=== PATIENT | female | born 1985 | race Caucasian/White ===

== ENCOUNTER 2016-12-12 22:09 | Observation (INO) | payer OTHER ==
[~2016-12-12] VITALS: Ht 167.6 cm; Wt 102.1 kg
[2016-12-12 22:13] VITALS: BP 138/97; PULSE 98; RESP 16; O2SAT 99
--- NOTE | 2016-12-12 22:50 | ED.REPORT ---
HPI-Chest Pain Under 40 Date of Service Dec 12, 2016 ED Provider: Adolph Griffith MD 31 year old female with a history of childhood seizures but no history of chest pain presents to ED complaining of chest pain that radiates to left shoulder, onset 1000 this morning. The pain feels more sharp during inspiration and has been worsening since this morning. She denies any nausea, vomiting, diarrhea, diaphoresis, SOB, productive cough, or abdominal pain. She does have a Mirena control device in place. The patient reports allergies to Penicillin, Vicodin and unspecified seizure medications. She denies any past surgical history or family history of clotting disorders or heart disease. Nursing Notes Stated Complaint: CHEST/L SHOULDER PAIN Chief Complaint: Chest Pain Nursing Notes Reviewed: Yes Allergies: Coded Allergies: Penicillins (Verified Allergy, Severe, 12/12/16) hydrocodone (Verified Allergy, Severe, 12/12/16) phenytoin (Verified Allergy, Severe, ALL SEIZURE MEDS, 12/12/16) Uncoded Allergies: ALL SEIZURE MEDICINE (Adverse Reaction, Mild, 04/11/05) Scheduled PRN Ibuprofen (Ibuprofen) 800 Mg Tablet 800 MG PO TID PRN PRN For Pain General Time Seen by MD: 22:50 Chief Complaint Chest pain Hx Obtained From: Patient Sudden in Onset?: Yes Onset Occurred: 13 - 16 hours ago Symptom Duration: Since onset Radiation: : Shoulder left Severity: Current: Moderate Severity: Maximum: Moderate Recent Healthcare: No recent doctor visit, No recent hospitalization Similar Sx Previous: No Past Medical History Past Medical History Seizures (last at 3 years old) depression anxiety Past Surgical History No pertinent surgical history. Family History No known family history of clotting disorders or heart disease. Smoking History Unknown if Ever Smoker Social History Alcohol Use: "Social" Ambulatory Status Independent Review of Systems Respiratory: Reports: Pleuritic pain, Denies: Prod cough, clear, Shortness of breath Cardiovascular: Reports: Chest pain (radiates to left shoulder. ) GI: Denies: Abdominal pain, Diarrhea, Nausea, Vomiting Musculoskeletal: Reports: Extremity pain Skin: Denies Diaphoresis Complete sys rev & neg: except as marked. Physical Exam Initial Vital Signs Vital Signs (First) Date Time Temp Pulse Resp B/P Pulse Ox O2 Delivery O2 Flow Rate FiO2 12/12/16 22:13 36.8 98 16 138/97 99 Room Air Initial VS: Reviewed General/Constitutional: Awake, Alert, Well hydrated Respiratory / Chest: Atraumatic, Breath sounds NL, Breath sounds = bilat, No respiratory distress, No rales, No rhonchi, No wheezing Cardiovascular: Heart rate NL, Regular rhythm, Heart sounds NL, No gallop, No murmurs, No rubs No peripheral edema or cords in lower extremities. Neck: Atraumatic, Full range of motion, No JVD Abdomen: Atraumatic, Soft, Non-tender, No guarding, No rebound Back: Atraumatic, Full range of motion Lower Extremity / Pelvis / MS: Atraumatic, Inspection NL, Full range of motion Skin: Warm, Dry Neurologic: Oriented X3, Speech NL, No motor deficits, No sensory deficits Psychiatric: Affect NL, Mood NL Head / Eyes: Atraumatic, Normocephalic, PERRL, EOMI ENT: Atraumatic, Airway patent, Mucous membranes moist Upper Extremity / MS: Atraumatic, Inspection NL, Full range of motion Interpretation & Diagnostics Lab Results Interpretation Result Diagram: 12/12/16223712/12/162237 Test 12/12/16 22:38 12/13/16 00:40 12/13/16 00:55 White Blood Count 10.3th/mm3 (3.8-10.1) Red Blood Count 4.97mil/mm3 (3.90-5.20) Hemoglobin 14.9g/dL (12.0-15.6) Hematocrit 43.9% (35.0-46.0) Mean Corpuscular Volume 88.3fL (81-100) Mean Corpuscular Hemoglobin 30.0pg (27.0-35.0) Mean Corpuscular Hemoglobin Concent 33.9% (32.0-37.0) Red Cell Distribution Width 13.5% (12.3-15.4) Platelet Count 244bil/L (150-400) Neutrophils (%) (Auto) 72.7% (40-74) Lymphocytes (%) (Auto) 18.6% (14-46) Monocytes (%) (Auto) 7.2% (4-12) Eosinophils (%) (Auto) 1% (0-5) Basophils (%) (Auto) 0.3% (0-3) Band Neutrophils % 0% (1-5) D-Dimer < 0.5mg/L (<0.50) Sodium Level 140mEq/L (134-144) Potassium Level 4.0mEq/L (3.5-5.2) Chloride Level 101mEq/L (97-108) Carbon Dioxide Level 23mmol/L (18-29) Blood Urea Nitrogen 7mg/dL (6-20) Creatinine 0.57mg/dL (0.57-1.00) Estimat Glomerular Filtration Rate 175mL/min (>59) Glucose Level 94mg/dL (60-99) Calcium Level 9.4mg/dL (8.5-10.1) Magnesium Level 2.2mg/dL (1.6-2.6) Total Bilirubin 0.4mg/dL (0.0-1.2) Aspartate Amino Transf (AST/SGOT) 25U/L (0-50) Alanine Aminotransferase (ALT/SGPT) 43U/L (0-32) Alkaline Phosphatase 116U/L (25-150) Pro-B-Type Natriuretic Peptide 47.80pg/mL (0-130) Total Protein 8.0g/dL (6.4-8.4) Albumin 4.7g/dL (3.4-5.0) Hold Whiteside Top Tube Received (Received) Hold Urine Received (Received) Troponin T 0.010ug/L (0.0-0.011) ECG Interpretation ECG Interpretation: Sinus rhythm. Rate is 83. Probable left atrial enlargement. Nonspecific T abnormalities, anterior leads. Time: 23:06 Interpreted by: ED physician X-Ray Chest Interpretation Chest Xray Interpretation: Increased markings, but probably due to relatively poor inspiration. No acute. Interpretation / Wet Read by: Wet read ED physician Re-Eval/Medical Decision Med Decision/Clinical Course 31-year-old no prior significant history presents with chest discomfort all day, an EKG was T inversions anteriorly that is a stable configuration but abnormal. Her enzymes are negative at this point. X-ray is unremarkable. She had a negative d-dimer. Discussed with cardiology and they recommend overnight admission and echo and stress testing in the morning. Source of Hx: Old records Re-Evaluation/Progress : Time of Eval: 01:58 Patient Status: Condition improved Re-Evaluation/Progress Note: Pt rechecked, who is stable. She is informed of the diagnosis and need for admission. The pt understands and agrees with the plan. All questions are addressed at this time. Consultation : Referral / Consult Name: Latonya Marquez DO Consulted With: Hospitalist Call Returned at: 02:06 Mixing [employer] Dispensing Supervisor: Agrees with eval, Agrees with plan, Accepts admit Note: Discussed patient case with Dr. Marquez who agrees to admit patient to the hospital. Counseled Regarding: Diagnosis, Lab results, Need for admission Discharge & Departure Primary Impression: Chest pain Chest pain type: chest pain on breathing Qualified Code: R07.1 - Chest pain on breathing Additional Impression: Abnormal EKG Disposition: ADMITTED TO HOSPITAL Discharge Condition All VS Reviewed: Yes Condition: Stable Referrals: [facility] Scribe Attestation Portions of this note were transcribed by Manas Leyva and Jayden Rodriguez. I, Dr. Griffith personally performed the history, physical exam and medical decision -making; I reviewed and confirmed the accuracy of the information in the transcribed note. Signed by: Rachell Almanza, 2016 and 02:30. copies to: [facility] Adolph Griffith MD Dec 12, 2016 22:50 Manas Leyva Dec 12, 2016 23:02 JAYDEN RODRIGUEZ Dec 13, 2016 02:30
[2016-12-12 22:56] LABS: BASOPHILS % (AUTO) 0.3 % (0-3); EOSINOPHILS % (AUTO) 1 % (0-5); MONOCYTES % (AUTO) 7.2 % (4-12); Mean Corpuscular Volume 88.3 fL (81-100); NEUTROPHILS % (AUTO) 72.7 % (40-74); Platelet Count 244 bil/L (150-400)
[2016-12-12 23:31] LABS: TROPONIN T 0.01 ug/L (0.0-0.011)
[2016-12-12 23:44] LABS: Magnesium 2.2 mg/dL (1.6-2.6)
[2016-12-12] MEDS ORDERED: Lactulose 20 Gm/30 mL 30 mL Syrup PO ONE (23:50)
[2016-12-13] VITALS (7 sets, daily range): BP systolic 117–167; BP diastolic 74–89; PULSE 65–86; RESP 15–18; O2SAT 95–100
[2016-12-13] MEDS ORDERED: Pantoprazole 4 mg/mL 10 mL Inj IVPUSH ONE (00:30)
[2016-12-13] MEDS ORDERED: OMEP20TA86 PO (01:52)
[2016-12-13] MEDS ORDERED: Alum-Mag Hydrox-Simeth 30 mL Suspension PO ONE (02:05)
[2016-12-13] MEDS ORDERED: Nitroglycerin 2% 1 Gm Ointment TOPICAL SCH (02:05)
[2016-12-13] MEDS ORDERED: Polyethylene Glycol (PEG) 17 Gm Powder PO PRN ×2 (02:10→04:30)
[2016-12-13] MEDS ORDERED: Alum-Mag Hydrox-Simeth 30 mL Suspension PO PRN ×2 (02:10→04:30)
[2016-12-13] MEDS ORDERED: Ondansetron 2 mg/mL 2 mL Inj IVPUSH PRN ×2 (02:10→04:30)
[2016-12-13] MEDS ORDERED: Senna-Docusate 8.6-50 mg Tablet PO PRN ×2 (02:10→04:30)
--- NOTE | 2016-12-13 05:19 | PCM.HPMED ---
Subjective Date of Service Dec 13, 2016 Primary Provider: Admitting Physician: Latonya Marquez DO Primary Care Physician: Shelly Attending Physician: Latonya Marquez DO Admit Status: From the Emergency Department Chief Complaint: Sharp Chest pain with deep breathing that radiates to the left shoulder onset 10 AM 12/12/2016 History of Present Illness: This is a pleasant 31 Y/O with a history acid reflux, hx of childhood seizures (last was age 3), (not currently on any medications except for a Mirena IUD), and otherwise healthy F without prior hx of chest pain presented to the ED complaining of achy 6/10 constant mid sternal chest pain that radiates to left shoulder that occurred initially at rest. The pain was onset 1000 this morning, and is worsened to 8/10 with deep inspiration that described as turning to sharp and stabbing. She states she has never had this before. Initially she thought it might be her acid reflux however it never went away. She says this is much worse. 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 She does have sick contacts and reports stuffy nose, sore throat, right ear pain that began in the ED, and endorses a bitemporal headache but without vision changes. Of note she says over the last 2 months she has been waking up with numbness in her legs and arms. She denies Fever, nausea, vomiting, diarrhea, diaphoresis, SOB, dyspnea, cough of any sort, abdominal pain, water brash, metallic taste in mouth, denies any strenuous lifting or exercise. x-ray appears to have no acute cardiopulmonary process. Temperature 36.8, pulse 98, respirations 16, blood pressure 138/97, pulse ox 99 % room air. Hemogram: CBC 10.3 slightly elevated, otherwise normal hemogram. Chemistry panel within normal limits. ALT slightly elevated at 43 Troponin 0.0102, proBNP 47.8 d-dimer was negative at less than 0.5 EKG normal sinus rhythm rate is 83, probable left atrial enlargement, nonspecific T abnormalities on the anterior leads. Review of Systems: A comprehensive review of systems was conducted and was negative except as mentioned in history of present illness. Allergies Coded Allergies: Penicillins (Verified Allergy, Severe, 12/12/16) hydrocodone (Verified Allergy, Severe, 12/12/16) phenytoin (Verified Allergy, Severe, ALL SEIZURE MEDS, 12/12/16) Uncoded Allergies: ALL SEIZURE MEDICINE (Adverse Reaction, Mild, 04/11/05) Home Medications no current home medications PMH Seizures (last at 3 years old) depression anxiety Surgical History Patient denies any surgical history. Family History No known family history of clotting disorders or heart disease. Sister with lupus and fibromyalgia Older sister with seizure disorder Grandmother on mom's side with ovarian and colon cancer Grandmother on father's side with history of stroke Social History Hx Alcohol Use: Yes Hx Substance Use: Yes Hx Tobacco Use: No Smoking Status: Unknown if Ever Smoker Living Arrangement: with Family Exam Vital Signs Vital Sign - Last Date Time Temp Pulse Resp B/P Pulse Ox O2 Delivery O2 Flow Rate FiO2 12/12/16 22:13 36.8 98 16 138/97 99 Room Air Exam General: Patient is alert and oriented 3, in no acute distress, resting comfortably in bed, speaking in full sentences. HEENT: NC/AT, eyes, PERRLA, EOMI, neck, soft supple, no adenopathy, no JVD, no masses, no thyromegaly, throat mucous membranes pink and moist, no erythema, no exudates, no tonsillar swelling, no uvular deviation, otoscopic examination showed normal TMs bilaterally, no frontal or maxillary sinus pressure or tenderness to palpation. Patient did have bilateral temporal tenderness to palpation. Lungs: CTAB all lambert, no wheezes, no rhonchi, no crackles, no adventitious lung sounds, no use of accessory muscles of respiration, good air movement, good respiratory effort. Heart: Regular rate and rhythm, no murmur, S1-S2 present, no rub, no click, no distant heart sounds, Abdomen: Soft, nontender, nondistended, bowel sounds active, no rebound, no guarding, Genitourinary: No CVA tenderness, no suprapubic tenderness Extremities: Muscle strength, 5 out of 5 upper/lower extremity and symmetric laterally, reflexes 2 out of 4 upper/lower extremity and symmetric bilaterally ( however believe patient was helping with the upper extremity reflexes as they seemed nonphysiologic), pulses equal and symmetric upper/lower extremity including radial and dorsalis pedis, no edema Neurologic: Grossly neurologically intact, speaking in full sentences, no focal neurological signs Skin: Warm dry and intact with good turgor Psychiatric: Mood and affect are congruent and appropriate. Lab and Diagnostics Result Diagram: 12/12/16223712/12/162237 X-Rays, CTs and MRIs No acute cardiopulmonary process 12-lead ECG EKG normal sinus rhythm rate is 83, probable left atrial enlargement, nonspecific T abnormalities on the anterior leads Assessment & Plan Pleasant 31-year-old 002 with history of childhood seizures last was age 3 , and otherwise healthy female who presented to the ED complaining of constant 6 -10 up to 8-10 achy sternal midsternal chest pain radiating to left shoulder, and stuffy nose and sore throat. Patient was admitted for further evaluation and observation. # Acute onset chest pain radiating to the left shoulder, present on admission, active - DDX includes malingering, acute coronary syndrome (however this is unlikely given negative tropes X 2, and non specific EKG findings), Costochondritis ( patient does have reproducible chest pain with anterior palpatory pressure), GERD, PE (however patient has negative D-dimer), Autoimmune disorder possible given patients family hx of Lupus in one sister, Infectious although less likely given WBC's 10.3 - CXR no acute cardiopulmonary process - Troponin 0.0102, proBNP 47.8 WNL - D-dimer was negative at less than 0.5 - EKG normal sinus rhythm rate is 83, probable left atrial enlargement, nonspecific T abnormalities on the anterior leads. - Will order ESR,CRP - IV protonix 40 mg BID - Will defer to the day hospitalist to work patient up for further rheumatologic or autoimmune disorders if deemed appropriate. # Leukocytosis, present on admission, active - Wbc's 10.3 - We will continue to monitor Chronic problems Seizures - (last seizure at 3 years old) depression anxiety Disposition: Admitted to in patient service with expected length of stay greater than 2 days, secondary to severity of presenting symptoms, treatment plan, complexity of clinical work up, and risk of adverse events. CODE STATUS: Full code PCP: No PCP DVT PE prophylaxis: SubQ heparin Q8H Pain Evaluation: Pain not Controlled VTE Prophylaxis: Sub-Q Heparin (Unfractionated) Resuscitation Status: CPR: Attempt Resuscitation Attending Statement The patient was seen and examined together with house staff on 12/13/2016 and I agree with the history, exam and plan as outlined in the note above. Filiberto Mcadamsb 17, 2017 03:16 Latonya Marquez DO Dec 13, 2016 05:28
[2016-12-13] MEDS ORDERED: IBUP800T28 PO (05:30)
--- NOTE | 2016-12-13 05:44 | NUR ---
Admission Pt arrived to room 3022 alert and oriented, able to ambulate with steady gait, conversing in full sentences. Pt complaining of 6/10 chest pain and generally appears uncomfortable. Pt was given PO tylenol and Maalox with no relief of chest discomfort. Pt Md was notified and ordered SL nitro and IV morphine PRN for chest pain. Pt was given 2 SL tablets of nitro and now reports chest pain as 1/10, and increases to 2/10 with deep breathing and significant arm movement. Pt was oriented to room, call light, bed and policies. Pt watched [facility] [employer] DVD. Pt placed on telemetry on arrival, per teletypewriter operator PT is SR 80s.
[2016-12-13 07:50] LABS: Magnesium 2.1 mg/dL (1.6-2.6)
[2016-12-13] MEDS ORDERED: Sodium Chloride LOK Flush 10 mL Syringe IVFLUSH SCH (08:30)
--- NOTE | 2016-12-13 08:42 | DRSVH ---
PROCEDURE: X-RAY CHEST ONE VIEW, PORTABLE ([id number]) INDICATIONS: CHEST PAIN TECHNIQUE: One view of the chest was acquired. COMPARISON: None. FINDINGS: Surgical changes and devices: None. Lungs and pleura: No pleural effusions or pneumothorax. Lungs are clear. Diffuse/interstitial lovelace ges and mild scarring in the left costophrenic angle. Bibasilar atelectasis Mediastinum: Mediastinal contours appear normal. Heart size is normal. Bones and chest wall: No suspicious bony lesions. Overlying soft tissues appear unremarkable. Late ral curvature of the spine IMPRESSION: Chronic diffuse/interstitial scarring. No acute disease. Dictated by: Alfonso Cano M.D. on 12/13/2016 at 8:40 Approved by: Alfonso Cano M.D. on 12/13/2016 at 8:41
[2016-12-13] MEDS: Pantoprazole 4 mg/mL 10 mL Inj IVPUSH SCH ×2 (09:13→17:22)
[2016-12-13] MEDS: Sodium Chloride LOK Flush 10 mL Syringe IVFLUSH SCH ×2 (09:13→17:22)
[2016-12-13] MEDS: Heparin 5,000 Unit/mL Inj SUBQ SCH ×2 (09:13→17:22)
[2016-12-13 09:21] LABS: BASOPHILS % (AUTO) 0.2 % (0-3); EOSINOPHILS % (AUTO) 0.9 % (0-5); MONOCYTES % (AUTO) 8.3 % (4-12); Mean Corpuscular Volume 89.2 fL (81-100); NEUTROPHILS % (AUTO) 66.5 % (40-74); Platelet Count 209 bil/L (150-400)
--- NOTE | 2016-12-13 11:02 | NUR ---
Social Work: Screening Data: Pt is a 31 y/o female admitted for chest pain, abnormal EKG. Pt's PCP is not listed, pt's insurance is [employer]. EMR reviewed. No d/c planning needs anticipated at this time. [facility] will continue to follow if needs arise. Assessment: Pt who is independent at baseline. Plan: Pt will d/c home via POV when medically stable. No d/c planning needs anticipated at this time. [facility] will continue to follow if needs arise. SANA Valiente
--- NOTE | 2016-12-13 15:26 | NUR ---
Shift: A/o x3, moves all extremities, responds appropriately. VSS, tele SR 70s-90s, RA O2 sats 99%. Tolerating PO intake well. Up ad jace in room, no gait instability noted. Continues to c/o minor chest pain, made worse with deep breathing, refused offered Nitro doses, given PO Tylenol with mild relief provided. Plan is for stress test in AM, pt to be NPO after midnight, last caffeine dose 12/12/16. Care ongoing.
--- NOTE | 2016-12-13 16:35 | DRSVH ---
[address] [address] Echocardiogram Report Name: ANDERS TOLENTINO LStudy Date : 12/13/2016 Height: 66 in Hospital Exam Location: [facility] Weight: 223 lb Gender: Female BSA: 2.1 m2 : 1985 Age: 31 yrs BP: 117/76 mmHg Reason For Study: Chest pain Ordering Physician: Performed [facility]: [facility] Interpretation Summary 1) Normal left ventricular thickness, size, wall motion, diastolic function, and systolic function (EF 60-65%). 2) Normal right ventricular size and function. 3) No significant valvular abnormalities. 4) No pericardial effusion present. 5) No prior Echo available for comparison. Procedure: A two-dimensional transthoracic echocardiogram with color flow and Doppler was performed. The study quality was technically adequate. There is no prior echocardiogram noted for this patient. The patient was in normal sinus rhythm during the exam. Left Ventricle: The left ventricle is normal in size, wall thickness, and systolic function without any focal wall motion abnormalities. The ejection fraction is estimated to be 60-65%. Assessment of diastolic parameters indicates normal left ventricular diastolic function and normal filling pressures. Right Ventricle: The right ventricle is normal size. The right ventricular systolic function is normal. Atria: The left atrial size is normal. Right atrial size is normal. The interatrial septum is intact with no evidence for an atrial septal defect. Mitral Valve: The mitral valve is normal in structure and function. There is trace mitral regurgitation. Aortic Valve: The aortic valve opens well. The aortic valve is trileaflet. There is no aortic valve stenosis. No aortic regurgitation is present. Tricuspid Valve: The tricuspid valve is normal in structure and function. There is a trace or physiologic amount of tricuspid regurgitation. The right ventricular systolic pressure is estimated at 26 mmHg assuming a right atrial pressure of 3 mm Hg. Pulmonic Valve: The pulmonic valve is normal in structure and function. There is trace pulmonic regurgitation. Great Vessels: The aortic root is normal size. The dimensions of the ascending aorta are normal. No Doppler or imaging evidence of an aortic coarctation. The IVC is of normal diameter and collapses greater than 50% with a sniff. This suggests a low right atrial pressure of 3 mm Hg. Pericardium/ Pleura There is no pericardial effusion. There is no pleural effusion. MMode/2D Measurements & Calculations LVIDd: 4.9 cm LA dimension: 3.7 cm RA long axis Ao root diam LVIDs: 3.2 cm FS: 34.1 % LA A2 area: 18.9 cm RA area Aortic Jxn: 2.7 cm IVSd: 0.80 cm LA A4 area: 17.6 cm asc Aorta Diam LVPWd: 0.78 cm LA length (vol) : 15.3 cm RA vol Ao Arch Diam (Prox LA vol: 63.6 ml : 43.7 ml Trans): 2.5 cm LA vol index RA : 20.9 mm/ RVDd major IVC diam: 2.0 cm : 5.1 cm LV felix. diameter/BSA LV sys. diameter/BSA RVD1 (basal) RVD2 (mid): 3.5 cm (cm/m^2): 2.3 (cm/m^2): 1.5 Doppler Measurements & Calculations Ao V2 max MV E max jeremy MV E/A: 1.2 TR max jeremy : 144.3 cm/sec : 99.9 cm/sec Med Peak E' Jeremy : 241.5 cm/sec Ao max P.3 mmHg MV A max jeremy TR max PG Ao mean P.6 mmHg : 82.1 cm/sec E/E' med: 13.0 : 23.3 mmHg MV P1/2t: 49.5 msec Lat Peak E' Jeremy PA V2 max : 85.3 cm/sec E/E' lat: 8.0 PA mean PG E/e' average PA Accel Time Pulm A Revs Dur : 0.19 sec MV A dur : 0.15 sec MV dec time: 0.16 sec MV P1/2t max jeremy Ao V2 mean PA V2 mean : 98.8 cm/sec : 63.2 cm/sec MVA(P1/2t): 4.4 cm2 Ao V2 VTI : 31.4 cm Pulm A Revs Dur - MV A Dur: -0.04 msec Reading Physician:04:28 PM
[2016-12-14 00:50] VITALS: BP 105/71; PULSE 62; RESP 16; O2SAT 100
[2016-12-14] MEDS: Heparin 5,000 Unit/mL Inj SUBQ SCH ×2 (00:52→10:16)
[2016-12-14] MEDS: Sodium Chloride LOK Flush 10 mL Syringe IVFLUSH SCH ×2 (00:52→10:16)
[2016-12-14 05:33] VITALS: BP 116/81; PULSE 74; RESP 16; O2SAT 99
[2016-12-14 06:02] VITALS: PULSE 91
[2016-12-14 06:15] LABS: TROPONIN T 0.01 ug/L (0.0-0.011)
--- NOTE | 2016-12-14 06:41 | NUR ---
NPO NPO @ midnight per orders. Patient aware and cooperative with status. Currently resting without any complaints.
[2016-12-14 10:02] VITALS: BP 107/68; PULSE 76; RESP 16; O2SAT 95
[2016-12-14] MEDS: Pantoprazole 4 mg/mL 10 mL Inj IVPUSH SCH (10:15)
[2016-12-14 10:24] VITALS: PULSE 77
--- NOTE | 2016-12-14 14:12 | DRSVH ---
PROCEDURE: EITHER REST OR STRESS ONLY Exercise myocardial perfusion SPECT with gated imaging and ejection fraction RADIOPHARMACEUTICAL: 21.2 mCi Tc-99m tetrafosmin IV at peak exercise. INDICATIONS: CHEST PAIN. TECHNIQUE: Radiopharmaceutical was injected at peak stress test. SPECT images were obtained, with p erfusion images in short axis, horizontal long axis, and vertical long axis views. Gated images were reviewed using [employer] software. COMPARISON: None. CARDIAC STRESS: A standard Zane treadmill exercise tolerance test was performed by the patient under the supervision of an attending staff. The patient exercised for 7 minutes and 42 seconds; functional aerobic impai rment (KORIN) is +21 %. Hemodynamic data: There is normal blood pressure and heart response to exercise. Patient achieved 9 1% of maximum predicted heart rate. Symptoms: Patient denied anginal chest pain during exercise. EKG: No diagnostic changes of ischemia; no ectopy. FINDINGS: Raw data: There is good labeling of myocardium by radiotracer. No significant motion artifacts. Left ventricular function: Gated images demonstrate normal left ventricle wall thickening. No segme ntal wall motion abnormalities. Left ventricle end diastolic volume is 66 mL. Left ventricle stress ejection fraction is 74%; normal values are above 45%. Myocardial perfusion: On the stress supine images there is an anterior and part lateral defect but t hese defects improve dramatically with prone imaging. IMPRESSION: This is most likely a normal myocardial perfusion study. There is a large anterior and lateral perfus ion defect that improves that improves dramatically with prone imaging, making this more consistent w ith attenuation artifact. There is still a very small and persistent inferolateral perfusion defect o n prone imaging. Normal LV ejection fraction and normal LV wall motion. Patient denied any chest lyndsay n during treadmill study and there are no overt ST changes consistent with inducible ischemia. Overal l this is considered to be a low risk study. Dictated by: Juan David Davidson Jr., M.D. on 12/14/2016 at 14:04 Approved by: Juan David Davidson Jr., M.D. on 12/14/2016 at 14:10
[2016-12-14] MEDS ORDERED: PANT40TA2 PO (14:34)
--- NOTE | 2016-12-14 15:07 | PCM.DIMED ---
Salma Ferguson DO 12/14/16 1506: Discharge Instructions Date of Service Dec 14, 2016 Dates of Hospitalization Dec 13, 2016 at 02:14 Discharge Diagnosis Discharge Diagnosis 1. Acute onset chest pain radiating to the left shoulder, present on admission, active 2. Mild leukocytosis, present on admission, resolved Medication Instructions Take Protonix in the morning 30 min - 1 hour before eating. You can take this for 2 weeks to a month and see if your symptoms change. Diet Heart Healthy Activity No restrictions Call your provider Fever or Chills, Shortness of breath, Chest pain, Excessive diarrhea, Weakness ( unilateral) Patient Instructions The tests show that the cause of your chest pain is unlikely to be from your heart. Follow-up plan Follow up with a primary care provider in 2-4 weeks. Go to urgent care of the emergency room if you have recurring symptoms before that time. If you have sudden onset chest pain and pressure call 911. Call the [facility] on Friday to make an appointment for "hospital follow-up" [phone] Follow-up Provider: [facility] Follow-up with PCP in: 2 weeks Rishabh Rosado MD 12/15/16 1711: Discharge Instructions Attending's Statement The patient was seen and examined together with Dr. Ferguson on 12-14-16 and I agree with the history, exam and plan as outlined in the note above. Salma Ferguson DO Dec 14, 2016 15:06 Rishabh Rosado MD Dec 15, 2016 17:11
--- NOTE | 2016-12-14 15:32 | NUR ---
Discharge Pt. discharged to home at 1530 in stable condition. Steady gait, no chest pain, SOB. All belongings, scripts and instructions home with pt. IV and tele dc'd prior to discharge.
--- NOTE | 2016-12-14 15:59 | NUR ---
Social Work: Discharge Data: Pt is on day 1 of hospitalization. EMR reviewed. Pt discharged home via POV, no d/c planning needs. Assessment: Pt who is independent at baseline. Plan: Pt discharged home via POV, no d/c planning needs. SANA Valiente
--- NOTE | 2016-12-16 13:46 | PCM.DC.MED ---
Discharge Summary Date of Service Dec 14, 2016 Dates of Hospitalization Date of Hospital Admission Dec 13, 2016 at 02:14 Date of Discharge: Dec 14, 2016 Providers: Admitting Physician: Latonya Marquez DO Primary Care Physician: Shelly Attending Physician: Latonya Marquez DO Diagnosis at Time of Discharge Diagnosis at Time of Discharge 1. Acute onset chest pain radiating to the left shoulder, present on admission, active 2. Mild leukocytosis, present on admission, resolved Procedures XRay, CTs & MRIs No acute cardiopulmonary process ECG 12 Lead EKG normal sinus rhythm rate is 83, probable left atrial enlargement, nonspecific T abnormalities on the anterior leads Cardiac Echo Impression Echocardiogram Report Interpretation Summary 1) Normal left ventricular thickness, size, wall motion, diastolic function, and systolic function (EF 60-65%). 2) Normal right ventricular size and function. 3) No significant valvular abnormalities. 4) No pericardial effusion present. 5) No prior Echo available for comparison. Other Diagnostics Exercise myocardial perfusion SPECT with gated imaging and ejection fraction IMPRESSION: This is most likely a normal myocardial perfusion study. There is a large anterior and lateral perfusion defect that improves that improves dramatically with prone imaging, making this more consistent with attenuation artifact. There is still a very small and persistent inferolateral perfusion defect on prone imaging. Normal LV ejection fraction and normal LV wall motion. Patient denied any chest pain during treadmill study and there are no overt ST changes consistent with inducible ischemia. Overall this is considered to be a low risk study. Dictated by: Juan David Davidson Jr., M.D. on 12/14/2016 at 14:04 Brief History History of present illness on admission by Dr. Kraft: This is a pleasant 31 Y/O with a history acid reflux, hx of childhood seizures (last was age 3), (not currently on any medications except for a Mirena IUD), and otherwise healthy F without prior hx of chest pain presented to the ED complaining of achy 6/10 constant mid sternal chest pain that radiates to left shoulder that occurred initially at rest. The pain was onset 1000 this morning, and is worsened to 8/10 with deep inspiration that described as turning to sharp and stabbing. She states she has never had this before. Initially she thought it might be her acid reflux however it never went away. She says this is much worse. 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 She does have sick contacts and reports stuffy nose, sore throat, right ear pain that began in the ED, and endorses a bitemporal headache but without vision changes. Of note she says over the last 2 months she has been waking up with numbness in her legs and arms. She denies Fever, nausea, vomiting, diarrhea, diaphoresis, SOB, dyspnea, cough of any sort, abdominal pain, water brash, metallic taste in mouth, denies any strenuous lifting or exercise. x-ray appears to have no acute cardiopulmonary process. Temperature 36.8, pulse 98, respirations 16, blood pressure 138/97, pulse ox 99 % room air. Hemogram: CBC 10.3 slightly elevated, otherwise normal hemogram. Chemistry panel within normal limits. ALT slightly elevated at 43 Troponin 0.0102, proBNP 47.8 d-dimer was negative at less than 0.5 EKG normal sinus rhythm rate is 83, probable left atrial enlargement, nonspecific T abnormalities on the anterior leads. Hospital Course Pleasant 31-year-old 002 with history of childhood seizures last was age 3 , and otherwise healthy female who presented to the ED complaining of constant 6 -10 up to 8-10 achy sternal midsternal chest pain radiating to left shoulder, and stuffy nose and sore throat. Patient was admitted for further evaluation and observation. # Acute onset chest pain radiating to the left shoulder, present on admission, active - DDX includes malingering, acute coronary syndrome (however this is unlikely given negative tropes X 2, and non specific EKG findings), Costochondritis ( patient does have reproducible chest pain with anterior palpatory pressure), GERD, PE (however patient has negative D-dimer), Autoimmune disorder possible given patients family hx of Lupus in one sister, Infectious although less likely given WBC's 10.3 - CXR no acute cardiopulmonary process - Troponin 0.0102, proBNP 47.8 WNL - D-dimer was negative at less than 0.5 - EKG normal sinus rhythm rate is 83, probable left atrial enlargement, nonspecific T abnormalities on the anterior leads. - Will order ESR,CRP - IV protonix 40 mg BID - Will defer to the day hospitalist to work patient up for further rheumatologic or autoimmune disorders if deemed appropriate. # Leukocytosis, present on admission, active - Wbc's 10.3 - We will continue to monitor Chronic problems Seizures - (last seizure at 3 years old) depression anxiety Disposition: Admitted to in patient service with expected length of stay greater than 2 days, secondary to severity of presenting symptoms, treatment plan, complexity of clinical work up, and risk of adverse events. CODE STATUS: Full code PCP: No PCP DVT PE prophylaxis: SubQ heparin Q8H Exam Vital Signs (Last) Date Time Temp Pulse Resp B/P Pulse Ox O2 Delivery O2 Flow Rate FiO2 12/14/16 10:24 77 12/14/16 10:02 36.8 16 107/68 95 Room Air Exam General: Patient is alert and oriented 3, in no acute distress, resting comfortably in bed, speaking in full sentences. HEENT: PERRLA, EOMI, neck, soft supple, no adenopathy, no JVD, no masses, no thyromegaly, mucous membranes pink and moist, no erythema. Lungs: CTAB in all lambert, no wheezes, no rhonchi, no crackles, no adventitious lung sounds, no use of accessory muscles of respiration, good air movement, good respiratory effort. Heart: Regular rate and rhythm, no murmur, no rub, no click, no distant heart sounds, Abdomen: Soft, nontender, nondistended, bowel sounds active, no rebound, no guarding, Extremities: pulses equal and symmetric upper/lower extremity including radial and dorsalis pedis, no edema Neurologic: Grossly neurologically intact, speaking in full sentences, no focal neurological signs Skin: Warm dry and intact with good turgor Psychiatric: Mood and affect are congruent and appropriate. Test 12/12/16 22:38 12/13/16 00:40 12/13/16 03:45 12/13/16 06:55 Band Neutrophils % 0% (1-5) D-Dimer < 0.5mg/L (<0.50) Pro-B-Type Natriuretic Peptide 47.80pg/mL (0-130) Hold Whiteside Top Tube Received (Received) Hold Urine Received (Received) Erythrocyte Sedimentation Rate 28mm/hr (0-32) Anti-Nuclear Antibody Screen Negative (Negative) White Blood Count 9.5th/mm3 (3.8-10.1) Red Blood Count 4.27mil/mm3 (3.90-5.20) Hemoglobin 12.8g/dL (12.0-15.6) Hematocrit 38.1% (35.0-46.0) Mean Corpuscular Volume 89.2fL (81-100) Mean Corpuscular Hemoglobin 30.0pg (27.0-35.0) Mean Corpuscular Hemoglobin Concent 33.6% (32.0-37.0) Red Cell Distribution Width 13.5% (12.3-15.4) Platelet Count 209bil/L (150-400) Neutrophils (%) (Auto) 66.5% (40-74) Lymphocytes (%) (Auto) 23.9% (14-46) Monocytes (%) (Auto) 8.3% (4-12) Eosinophils (%) (Auto) 0.9% (0-5) Basophils (%) (Auto) 0.2% (0-3) Hemoglobin A1c 5.5% (4.8-5.6) Magnesium Level 2.1mg/dL (1.6-2.6) C-Reactive Protein 1.4mg/dL (0.0-0.5) Thyroid Stimulating Hormone (TSH) 3.610uIU/mL (0.450-4.500) Test 12/14/16 05:04 Sodium Level 136mEq/L (134-144) Potassium Level 4.2mEq/L (3.5-5.2) Chloride Level 99mEq/L (97-108) Carbon Dioxide Level 23mmol/L (18-29) Blood Urea Nitrogen 9mg/dL (6-20) Creatinine 0.62mg/dL (0.57-1.00) Estimat Glomerular Filtration Rate 159mL/min (>59) Glucose Level 86mg/dL (60-99) Calcium Level 9.1mg/dL (8.5-10.1) Total Bilirubin 0.5mg/dL (0.0-1.2) Aspartate Amino Transf (AST/SGOT) 21U/L (0-50) Alanine Aminotransferase (ALT/SGPT) 31U/L (0-32) Alkaline Phosphatase 102U/L (25-150) Troponin T 0.010ug/L (0.0-0.011) Total Protein 6.6g/dL (6.4-8.4) Albumin 4.1g/dL (3.4-5.0) Discharge Medications Discharge Medications Pantoprazole DR (Protonix) 40 Mg Tablet 40 MG PO DAILY Prescribed by: SALMA RAE DO As needed Ibuprofen (Ibuprofen) 800 Mg Tablet 800 MG PO TID PRN PRN For Pain (Reported) Additional med instructions Take Protonix in the morning 30 min - 1 hour before eating. You can take this for 2 weeks to a month and see if your symptoms change. Followup Plan Disposition: Discharge Home Follow-up plan Follow up with a primary care provider in 2-4 weeks. Go to urgent care of the emergency room if you have recurring symptoms before that time. If you have sudden onset chest pain and pressure call 911. Call the [facility] on Friday to make an appointment for "hospital follow-up" [phone] Discharge Diet: Heart Healthy Discharge Activity: No restrictions Patient Instructions The tests show that the cause of your chest pain is unlikely to be from your heart. Follow-up Provider: [facility] Follow-up with PCP in: 2 weeks Attending Statement The patient was seen and examined together with Dr. Rae on 12-16-16 and I agree with the history, exam and plan as outlined in the note above. Salma Rae DO Dec 16, 2016 13:46 Rishabh Rosado MD Dec 17, 2016 16:43
== END 2016-12-14 15:33 | disposition home or self-care (01) ==
LOC: SED 22:09 → MPC 12-13 02:14
PROVIDERS: ADMIT Internal Medicine; ATTEND Internal Medicine
DX: R07.1 Chest pain on breathing (principal); D72.829 Elevated white blood cell count, unspecified; R94.31 Abnormal electrocardiogram [ECG] [EKG]; F41.9 Anxiety disorder, unspecified; F32.9 Major depressive disorder, single episode, unspecified; Z86.69 Personal history of other diseases of the nervous system and sense organs; Z88.0 Allergy status to penicillin; Z88.5 Allergy status to narcotic agent; Z88.8 Allergy status to other drugs, medicaments and biological substances
CPT/HCPCS: 36415; 71010; 78451; 80048; 80053; 83036; 83735; 83880; 84443; 84484; 85025; 85379; 85651; 86140; 86225; 86235; 93005; 93017; 96374; 96376; 99285; A9502; C8929; G0378; J1644